=== PATIENT | male | born 1975 | race Caucasian/White ===

== ENCOUNTER 2016-10-30 20:32 | Inpatient (IN) | payer MEDICAID ==
[~2016-10-30] VITALS: Ht 175.3 cm; Wt 87.2 kg
[~2016-10-30 20:32] MED LIST: CHLO.12%30 SSP; CLIN150 PO; IBUP800T23 PO; LISI-363 PO; LORTA5 PO; METH10TA PO; NAPR500 PO; TAB-TAB PO
[2016-10-30 20:35] VITALS: BP 119/78; PULSE 76; RESP 16; TEMP 97.4; O2SAT 95
[2016-10-30] MEDS ORDERED: NALOXONE HCL 2 MG/2 ML VIAL ONE (23:34)
[2016-10-30] MEDS ORDERED: SODIUM CHLOR 0.9% 1000 ML INJ 1,000 ML IV ONE (23:45)
[2016-10-30] MEDS ORDERED: NALOXONE HCL 2 MG/2 ML VIAL IV PUSH ONE (23:45)
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
[2016-10-31] VITALS (14 sets, daily range): BP systolic 102–141; BP diastolic 61–90; PULSE 55–91; RESP 10–24; TEMP 97.4–98.3; O2SAT 91–99
[2016-10-31 00:09] LABS: AUTOMATED NEUTROPHIL # 4.9 TH/MM3 (1.8-7.7); BASOPHIL % 0.3 % (0.0-2.0); EOSINOPHIL # 0.1 TH/MM3 (0-0.4); EOSINOPHIL % 1.8 % (0.0-4.0); HEMATOCRIT 38.2 % (39.0-51.0); LYMPH % 17.3 % (9.0-44.0); LYMPHOCYTE # 1.2 TH/MM3 (1.0-4.8); MEAN CELL VOLUME 85.3 FL (80.0-100.0); MEAN CORPUSCULAR HEMOGLOBIN 29.6 PG (27.0-34.0); MEAN CORPUSCULAR HGB CONC 34.7 % (32.0-36.0); MONO % 10.4 % (0.0-8.0); NEUT % 70.2 % (16.0-70.0); PLATELET COUNT 210 TH/MM3 (150-450); RED BLOOD COUNT 4.48 MIL/MM3 (4.50-5.90); RED CELL DISTRIBUTION WIDTH 13.5 % (11.6-17.2); WHITE BLOOD COUNT 6.9 TH/MM3 (4.0-11.0)
[2016-10-31 00:20] LABS: HEMO FLAGS DIFF FINAL
[2016-10-31 00:29] LABS: ACETAMINOPHEN LESS THAN 2.0 MCG/ML (10.0-30.0); ALT (GPT) 29 U/L (12-78); ANION GAP 8 MEQ/L (5-15); AST (GOT) 29 U/L (15-37); BICARBONATE 29.2 MEQ/L (21.0-32.0); BLOOD UREA NITROGEN 25 MG/DL (7-18); CHLORIDE 109 MEQ/L (98-107); GLOMERULAR FILTRATION RATE 84 ML/MIN (>89); POTASSIUM 3.5 MEQ/L (3.5-5.1); SODIUM (NA) 146 MEQ/L (136-145)
[2016-10-31] MEDS ORDERED: NALOXONE INJ 4 MG in DEXTROSE 5% IN WATER INJ 246 ML IV SCH ×2 (00:30)
[2016-10-31 00:37] LABS: BLOOD GAS BASE EXCESS 1.4 mmol/L (-2-2); BLOOD GAS HCO3 25 mmol/L (22-26); BLOOD GAS METHEMOGLOBIN 1.5 % (0-2); BLOOD GAS O2 HGB SATURATION 94 % (90-100); BLOOD GAS OXYGEN CONTENT 17.3 Vol % (12.0-20.0); BLOOD GAS PCO2 34 mmHg (38-42); BLOOD GAS PO2 81 mmHG (61-120); BLOOD GAS TOTAL HGB 13.1 G/DL (12.0-16.0); CRITICAL VALUE NO; DRAW SITE RT FEMORAL; LITER FLOW 4 L/M; NUMBER OF ARTERIAL PUNCTURES 1; OXYGEN DEVICE NASAL CANNULA; STAT YES; TEMP CORR TO 98.6
[2016-10-31 00:39] LABS: AMPHETAMINE, URINE POS (NEG); BARBITURATES, URINE NEG (NEG); COCAINE, URINE POS (NEG)
[2016-10-31 00:39] LABS: ALKALINE PHOSPHATASE 80 U/L (45-117); CREATINE KINASE 827 U/L (39-308); TOTAL BILIRUBIN ADULT 0.7 MG/DL (0.2-1.0)
[2016-10-31 00:51] LABS: CKMB 5.2 NG/ML (0.5-3.6)
--- NOTE | 2016-10-31 01:40 | RADRPT ---
EXAM DATE/TIME: 10/31/2016 01:05 [facility] COMPARISON: CHEST SINGLE AP, September 03, 2013, 19:45. INDICATIONS : Short of breath. MEDICAL HISTORY : None. SURGICAL HISTORY : None. ENCOUNTER: Initial ACUITY: 1 day PAIN SCORE: Non-responsive. LOCATION: Bilateral chest FINDINGS: A single view of the chest demonstrates the lungs to be symmetrically aerated without evidence of mas s, infiltrate or effusion. The cardiomediastinal contours are unremarkable. Osseous structures are intact. CONCLUSION: No acute disease. No significant change has occurred. Karthik Menjivar MD on October 31, 2016 at 1:34 Board Certified Radiologist. This report was verified electronically.
[2016-10-31] MEDS ORDERED: ACETAMINOPHEN 325 MG TAB PO PRN (02:30)
[2016-10-31] MEDS ORDERED: RESP: ALBUTEROL 2.5 MG/IPRATROPIUM 0.5 MG NEB (PRN) INH (02:30)
[2016-10-31] MEDS ORDERED: CHLORHEXIDINE GLUCONATE 2 % 1 PACK (2 CLOTHS) TOP PRN (02:30)
[2016-10-31] MEDS ORDERED: METOCLOPRAMIDE HCL 10 MG/2 ML VIAL IV PRN (02:30)
[2016-10-31] MEDS ORDERED: ONDANSETRON HCL 4 MG/2 ML VIAL IV PRN (02:30)
[2016-10-31] MEDS ORDERED: SODIUM CHLORIDE 0.9% FLUSH 5 ML FLUSH IV FLUSH PRN (02:30)
[2016-10-31] MEDS ORDERED: LORazepam 2 MG/ML VIAL IV PRN (02:30)
[2016-10-31] MEDS ORDERED: MISCELLANEOUS NURSING INFORMATION XX SCH (02:30)
[2016-10-31] MEDS ORDERED: ZOLPIDEM TARTRATE 5 MG TAB PO PRN (02:30)
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
[2016-10-31] MEDS ORDERED: IBUPROFEN 800 MG TAB PO PRN (02:45)
[2016-10-31] MEDS ORDERED: hydrALAZINE HCL 20 MG/ML VIAL IV PUSH PRN (02:45)
[2016-10-31] MEDS: SODIUM CHLOR 0.9% 1000 ML INJ 1,000 ML IV SCH ×4 (03:13→16:56)
[2016-10-31] MEDS: CHLORHEXIDINE GLUCONATE 2 % 1 PACK (2 CLOTHS) TOP SCH (05:09)
[2016-10-31 05:41] LABS: CKMB 5.4 NG/ML (0.5-3.6)
[2016-10-31] MEDS: SODIUM CHLORIDE 0.9% FLUSH 5 ML FLUSH IV FLUSH SCH ×2 (07:39→21:00)
[2016-10-31] MEDS: LISINOPRIL 20 MG TAB PO SCH (09:00)
[2016-10-31] MEDS ORDERED: FAMOTIDINE 20 MG/2 ML VIAL IV PUSH SCH (09:00)
[2016-10-31] MEDS: ENOXAPARIN SODIUM 40 MG/0.4 ML SYRINGE SQ SCH (09:00)
[2016-10-31] MEDS: MULTIVITAMIN TAB PO SCH (09:00)
[2016-10-31 22:32] LABS: CKMB 2.8 NG/ML (0.5-3.6)
[2016-11-01] VITALS: BP 118/70; PULSE 74; RESP 18; TEMP 97; O2SAT 95
[2016-11-01] MEDS: SODIUM CHLOR 0.9% 1000 ML INJ 1,000 ML IV SCH ×3 (00:46→10:54)
[2016-11-01] MEDS: CHLORHEXIDINE GLUCONATE 2 % 1 PACK (2 CLOTHS) TOP SCH (00:46)
[2016-11-01 06:35] LABS: AUTOMATED NEUTROPHIL # 3.6 TH/MM3 (1.8-7.7); BASOPHIL % 0.3 % (0.0-2.0); EOSINOPHIL # 0.1 TH/MM3 (0-0.4); EOSINOPHIL % 2.4 % (0.0-4.0); HEMATOCRIT 31.4 % (39.0-51.0); HEMO FLAGS DIFF FINAL; LYMPH % 18.5 % (9.0-44.0); LYMPHOCYTE # 0.9 TH/MM3 (1.0-4.8); MEAN CORPUSCULAR HEMOGLOBIN 30.1 PG (27.0-34.0); MONO % 9.3 % (0.0-8.0); NEUT % 69.5 % (16.0-70.0); PLATELET COUNT 147 TH/MM3 (150-450); RED BLOOD COUNT 3.65 MIL/MM3 (4.50-5.90); RED CELL DISTRIBUTION WIDTH 13.4 % (11.6-17.2); WHITE BLOOD COUNT 5.1 TH/MM3 (4.0-11.0)
[2016-11-01 07:04] LABS: ALKALINE PHOSPHATASE 69 U/L (45-117); ALT (GPT) 50 U/L (12-78); ANION GAP 5 MEQ/L (5-15); AST (GOT) 41 U/L (15-37); BICARBONATE 30.5 MEQ/L (21.0-32.0); BLOOD UREA NITROGEN 15 MG/DL (7-18); CHLORIDE 109 MEQ/L (98-107); GLOMERULAR FILTRATION RATE 106 ML/MIN (>89); MAGNESIUM 1.9 MG/DL (1.5-2.5); POTASSIUM 3.9 MEQ/L (3.5-5.1); SODIUM (NA) 144 MEQ/L (136-145); TOTAL BILIRUBIN ADULT 0.3 MG/DL (0.2-1.0)
[2016-11-01 08:00] VITALS: BP 117/76; PULSE 65; RESP 17; TEMP 96.4; O2SAT 95
[2016-11-01] MEDS: ENOXAPARIN SODIUM 40 MG/0.4 ML SYRINGE SQ SCH (08:27)
[2016-11-01] MEDS: SODIUM CHLORIDE 0.9% FLUSH 5 ML FLUSH IV FLUSH SCH (08:27)
[2016-11-01] MEDS: LISINOPRIL 20 MG TAB PO SCH (08:27)
[2016-11-01] MEDS: MULTIVITAMIN TAB PO SCH (08:27)
[2016-11-01 12:00] VITALS: BP 127/84; PULSE 62; RESP 18; TEMP 97.5; O2SAT 97
[2016-11-01 12:49] VITALS: O2SAT 96
--- NOTE | 2016-11-01 13:24 | HHI.PR ---
Subjective Remarks The patient wanted to go home. He said he overdosed on Dilaudid and is not sure why. He said he won't do it again. He said he also smoked marijuana. He denies using other drugs. He said he felt well ambulating. He has been tolerating a diet. He said he is drinking plenty of fluids. Discussed with nursing. Objective Vitals Vital Signs Date Time Temp Pulse Resp B/P Pulse Ox O2 Delivery O2 Flow Rate FiO2 11/01/16 12:49 96 11/01/16 12:00 97.5 62 18 127/84 97 11/01/16 09:27 17 11/01/16 08:24 Room Air 11/01/16 08:00 96.4 65 17 117/76 95 11/01/16 00:45 Room Air 11/01/16 00:00 97.0 74 18 118/70 95 10/31/16 22:00 64 10/31/16 21:00 98 Room Air 10/31/16 20:50 98 21 10/31/16 20:00 97.4 55 10 106/65 98 10/31/16 20:00 55 10/31/16 20:00 97.4 62 20 110/62 97 10/31/16 19:00 99 Nasal Cannula 2.00 10/31/16 16:00 58 10/31/16 16:00 98.3 58 12 108/66 98 I/O 10/31/16 10/31/16 10/31/16 11/01/16 11/01/16 11/01/16 07:00 15:00 23:00 07:00 15:00 23:00 Intake Total 507 ml 2680 ml 2388 ml 1169 ml Output Total 0 ml 300 ml 900 ml 600 ml Balance 507 ml 2380 ml 1488 ml 569 ml Intake Oral 1200 ml 360 ml 220 ml IV Total 507 ml 1480 ml 2028 ml 949 ml Output Urine Total 0 ml 300 ml 900 ml 600 ml # Bowel Movements 0 0 Result Diagram: 11/01/16 0514 11/01/16 0514 Imaging Last Impressions Chest X-Ray 10/30/16 0000 Signed Impressions: Service Date/Time: Monday, October 31, 2016 01:05 - CONCLUSION: No acute disease. No significant change has occurred. Karthik Menjivar MD Objective Remarks GENERAL: Well-nourished, well-developed patient in NAD. SKIN: Warm and dry. HEAD: Normocephalic. EYES: No scleral icterus. No injection or drainage. NECK: Supple, trachea midline. No JVD or lymphadenopathy. CARDIOVASCULAR: Regular rate and rhythm without murmurs, gallops, or rubs. RESPIRATORY: Breath sounds equal bilaterally. No accessory muscle use. GASTROINTESTINAL: Abdomen soft, nondistended. MUSCULOSKELETAL: No cyanosis, or edema. BACK: Nontender without obvious deformity. No CVA tenderness. EXTREMITIES: No edema. NEURO: No gross deficits. Medications and IVs Current Medications Medications (Trade) Dose Ordered Sig/Pat Route Start Time Stop Time Status Last Admin (NS 1000 ml Inj) 1,000 ml @ 185 mls/hr Q5H25M IV 10/31/16 02:24 11/01/16 05:55 (NS Flush) 2 ml UNSCH PRN IV FLUSH 10/31/16 02:30 (NS Flush) 2 ml BID IV FLUSH 10/31/16 09:00 10/31/16 21:00 (Tylenol) 650 mg Q6H PRN PO 10/31/16 02:30 11/01/16 08:27 (Ativan Inj) 2 mg Q4H PRN IV 10/31/16 02:30 (Zofran Inj) 4 mg Q6H PRN IV 10/31/16 02:30 (Lovenox Inj) 40 mg Q24H SQ 10/31/16 09:00 11/01/16 08:27 (Chlorhexidine 2% Cloth) 3 pack Taper DAILY@04 TOP 10/31/16 04:00 10/27/17 03:59 10/31/16 05:09 (Chlorhexidine 2% Cloth) 3 pack UNSCH PRN TOP 10/31/16 02:30 (Apresoline Inj) 20 mg Q4H PRN IV PUSH 10/31/16 02:45 (Motrin) 800 mg TID PRN PO 10/31/16 02:45 (Prinivil) 20 mg DAILY PO 10/31/16 09:00 11/01/16 08:27 (Theragran) 1 tab DAILY PO 10/31/16 09:00 11/01/16 08:27 A/P Assessment and Plan Methadone overdose The pt says he is on 10 mg of methadone three times a day. He says he is not sure why he overdosed but he said he will not do it again. He currently feels at his baseline. - Neuro checks. - Narcan when necessary. - IV fluid hydration. - cessation instruction. - outpt follow-up. Rhabdomyolysis Secondary to overdose. CK level has been improving with IV hydration. - Encourage by mouth intake of fluids. HTN Well controlled at this time. - continue Lisinopril. DVT GI prophylaxis - Lovenox and Pepcid Discharge Planning Discharge home. Ren Christopher DO Nov 01, 2016 13:24
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
== END 2016-11-01 14:21 | disposition home or self-care (01) | DRG 918 ==
LOC: NEPC 20:32 → NEDA 10-31 02:19 → N03B 10-31 04:03 → N07A 10-31 23:21
PROVIDERS: ADMIT Hospitalist; ATTEND Hospitalist
DX: T40.3X1A Poisoning by methadone, accidental (unintentional), initial encounter (principal); M62.82 Rhabdomyolysis; E87.1 Hypo-osmolality and hyponatremia; I10 Essential (primary) hypertension; G89.29 Other chronic pain; K21.9 Gastro-esophageal reflux disease without esophagitis; F40.240 Claustrophobia; F12.90 Cannabis use, unspecified, uncomplicated; Z72.0 Tobacco use; Z78.1 Physical restraint status; Z79.891 Long term (current) use of opiate analgesic; Y92.9 Unspecified place or not applicable
CPT/HCPCS: 36600; 71010; 80053; 80307; 80320; 80329; 82140; 82550; 82552; 82805; 83735; 84100; 84443; 85025; 87641; 96361; 96365; 96376; G0480; J1650; J2310; J7030; J7060; P9612

== ENCOUNTER 2017-03-18 21:28 | Emergency (ER) | payer MEDICAID ==
[~2017-03-18] VITALS: Ht 172.7 cm; Wt 89.8 kg
[2017-03-18 21:32] VITALS: BP 182/103; PULSE 69; RESP 18; TEMP 99.1; O2SAT 98
== END 2017-03-18 23:27 | disposition left against medical advice (07) ==
LOC: NED 21:28
DX: T14.8 Other injury of unspecified body region (principal); W54.0XXA Bitten by dog, initial encounter; Z53.21 Procedure and treatment not carried out due to patient leaving prior to being seen by health care provider
CPT/HCPCS: 99281

== ENCOUNTER 2017-09-11 13:20 | Emergency (ER) | payer MEDICAID ==
[~2017-09-11] VITALS: Ht 172.7 cm; Wt 77.3 kg
[2017-09-11 13:21] VITALS: BP 156/101; PULSE 95; RESP 20; TEMP 99.3; O2SAT 98
[2017-09-11] MEDS ORDERED: ACETAMINOPHEN/HYDROcodone 325 MG/5 MG TAB PO ONE (15:45)
[2017-09-11] MEDS ORDERED: LIDOCAINE HCL 1% 50 ML VIAL INFIL ONE (15:45)
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
[2017-09-11] MEDS ORDERED: IBUPROFEN 800 MG TAB PO ONE (16:00)
[2017-09-11] MEDS ORDERED: LIDOCAINE HCL 1% 20 ML VIAL INFIL ONE (16:45)
[2017-09-11] MEDS ORDERED: CEPH-460 PO (17:04)
[2017-09-11] MEDS ORDERED: BACT800T5 PO (17:04)
[2017-09-11] MEDS ORDERED: IBUP1TAB7 PO (17:04)
== END 2017-09-11 17:21 | disposition home or self-care (01) ==
LOC: NEPK 13:20
DX: L02.413 Cutaneous abscess of right upper limb (principal); K21.9 Gastro-esophageal reflux disease without esophagitis; I10 Essential (primary) hypertension; Z72.0 Tobacco use; F12.90 Cannabis use, unspecified, uncomplicated
CPT/HCPCS: 10060; 10061; 87070; 87205

== ENCOUNTER 2017-09-13 08:44 | Emergency (ER) | payer MEDICAID ==
[~2017-09-13] VITALS: Ht 172.7 cm; Wt 78.0 kg
[~2017-09-13 08:44] MED LIST changes: +BACT800T5 PO; +CEPH-460 PO; -CHLO.12%30 SSP; -CLIN150 PO; +IBUP1TAB7 PO; -IBUP800T23 PO; -LISI-363 PO; -LORTA5 PO; -METH10TA PO; -NAPR500 PO; -TAB-TAB PO
[2017-09-13 08:45] VITALS: BP 116/76; PULSE 69; RESP 12; TEMP 98.6; O2SAT 98
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
== END 2017-09-13 11:27 | disposition home or self-care (01) ==
LOC: NEPD 08:44
DX: L02.413 Cutaneous abscess of right upper limb (principal); Z48.817 Encounter for surgical aftercare following surgery on the skin and subcutaneous tissue; Z72.0 Tobacco use
CPT/HCPCS: 99281

== ENCOUNTER 2017-12-02 10:29 | Emergency (ER) | payer MEDICAID ==
[~2017-12-02] VITALS: Ht 172.7 cm; Wt 85.0 kg
[2017-12-02 10:40] VITALS: BP 169/92; PULSE 69; RESP 20; TEMP 98.7; O2SAT 100
[2017-12-02 10:57] VITALS: BP 182/100; PULSE 70; RESP 18; TEMP 98.4; O2SAT 99
[2017-12-02] MEDS ORDERED: LISI-519 PO (10:59)
[2017-12-02] MEDS ORDERED: LIDOCAINE HCL 1% 50 ML VIAL INFIL ONE (11:00)
[2017-12-02] MEDS ORDERED: oxyCODONE/ACETAMINOPHEN 5 MG/325 MG TAB PO ONE (11:00)
[2017-12-02] MEDS ORDERED: DOXY100C PO (11:41)
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
== END 2017-12-02 11:52 | disposition home or self-care (01) ==
LOC: NEPD 10:29
DX: L02.91 Cutaneous abscess, unspecified (principal); L03.113 Cellulitis of right upper limb; F12.90 Cannabis use, unspecified, uncomplicated; Z72.0 Tobacco use
CPT/HCPCS: 10060; 87070; 87205

== ENCOUNTER 2017-12-04 20:52 | Emergency (ER) | payer MEDICAID ==
[~2017-12-04] VITALS: Ht 172.7 cm; Wt 81.5 kg
[~2017-12-04 20:52] MED LIST changes: -BACT800T5 PO; -CEPH-460 PO; +DOXY100C PO; -IBUP1TAB7 PO; +LISI-519 PO
[2017-12-04 22:29] VITALS: BP 119/69; PULSE 95; RESP 17; TEMP 97.7; O2SAT 100
== END 2017-12-04 23:08 | disposition left against medical advice (07) ==
LOC: NED 20:52
DX: Z03.89 Encounter for observation for other suspected diseases and conditions ruled out (principal)
CPT/HCPCS: 99281

== ENCOUNTER 2017-12-15 14:15 | Emergency (ER) | payer MEDICAID ==
[~2017-12-15] VITALS: Ht 172.7 cm; Wt 82.0 kg
[2017-12-15 14:28] VITALS: BP 138/87; PULSE 90; RESP 19; TEMP 98.8; O2SAT 100
[2017-12-15] MEDS ORDERED: LIDOCAINE 1%/EPINEPHrine 1:100,000 SOLN 20 ML VIAL INFIL ONE (16:30)
[2017-12-15] MEDS ORDERED: SODIUM CHLORIDE 0.9% FLUSH 10 ML FLUSH IVF PRN (16:30)
[2017-12-15] MEDS ORDERED: oxyCODONE/ACETAMINOPHEN 7.5 MG/325 MG TAB PO ONE (16:30)
[2017-12-15] MEDS ORDERED: LIDOCAINE 1%/EPINEPHrine 1:100,000 SOLN 30 ML VIAL ONE (16:38)
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
[2017-12-15] MEDS ORDERED: CLINDAMYCIN 900 MG/NS PREMIX 50 ML IV ONE (16:45)
[2017-12-15 17:11] LABS: AUTOMATED NEUTROPHIL # 9.5 TH/MM3 (1.8-7.7); BASOPHIL # 0.1 TH/MM3 (0-0.2); BASOPHIL % 0.5 % (0.0-2.0); EOSINOPHIL # 0.1 TH/MM3 (0-0.4); EOSINOPHIL % 0.7 % (0.0-4.0); HEMATOCRIT 42.2 % (39.0-51.0); HEMOGLOBIN 14.5 GM/DL (13.0-17.0); LYMPH % 11.5 % (9.0-44.0); LYMPHOCYTE # 1.4 TH/MM3 (1.0-4.8); MEAN CELL VOLUME 85.9 FL (80.0-100.0); MEAN CORPUSCULAR HEMOGLOBIN 29.5 PG (27.0-34.0); MEAN CORPUSCULAR HGB CONC 34.4 % (32.0-36.0); MEAN PLATELET VOLUME 7.7 FL (7.0-11.0); MONOCYTE # 0.8 TH/MM3 (0-0.9); NEUT % 80.3 % (16.0-70.0); PLATELET COUNT 325 TH/MM3 (150-450); RED BLOOD COUNT 4.91 MIL/MM3 (4.50-5.90); RED CELL DISTRIBUTION WIDTH 13.6 % (11.6-17.2); WHITE BLOOD COUNT 11.8 TH/MM3 (4.0-11.0)
[2017-12-15 17:35] LABS: ALBUMIN 3.8 GM/DL (3.4-5.0); ALT (GPT) 27 U/L (12-78); AST (GOT) 10 U/L (15-37); BICARBONATE 27.9 MEQ/L (21.0-32.0); BLOOD UREA NITROGEN 9 MG/DL (7-18); CALCIUM 9.5 MG/DL (8.5-10.1); CHLORIDE 108 MEQ/L (98-107); CREATININE 0.84 MG/DL (0.60-1.30); GLOMERULAR FILTRATION RATE 99 ML/MIN (>89); GLUCOSE,RANDOM 91 MG/DL (74-106); SODIUM (NA) 141 MEQ/L (136-145)
[2017-12-15 17:37] LABS: ALKALINE PHOSPHATASE 90 U/L (45-117); TOTAL BILIRUBIN ADULT 0.4 MG/DL (0.2-1.0); TOTAL PROTEIN 7.8 GM/DL (6.4-8.2)
[2017-12-15] MEDS ORDERED: TYLETAB34 PO (18:13)
[2017-12-15] MEDS ORDERED: CLIN150C14 PO (18:13)
== END 2017-12-15 19:41 | disposition home or self-care (01) ==
LOC: NEPC 14:15
DX: L02.413 Cutaneous abscess of right upper limb (principal); L03.113 Cellulitis of right upper limb; F14.10 Cocaine abuse, uncomplicated; M19.90 Unspecified osteoarthritis, unspecified site; K21.9 Gastro-esophageal reflux disease without esophagitis; I10 Essential (primary) hypertension; Z72.0 Tobacco use; Z79.899 Other long term (current) drug therapy
CPT/HCPCS: 10061; 80053; 80307; 85025; 87070; 87205; 96365

== ENCOUNTER 2017-12-17 08:17 | Emergency (ER) | payer MEDICAID ==
[~2017-12-17] VITALS: Ht 172.7 cm; Wt 85.0 kg
[~2017-12-17 08:17] MED LIST changes: +CLIN150C14 PO; +TYLETAB34 PO
[2017-12-17 08:20] VITALS: BP 146/89; PULSE 68; RESP 16; TEMP 97.8; O2SAT 99
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
[2017-12-17] MEDS ORDERED: IBUP1TAB7 PO (09:00)
[2017-12-17] MEDS ORDERED: PERC5TAB12 PO (09:00)
[2017-12-17] MEDS ORDERED: oxyCODONE/ACETAMINOPHEN 5 MG/325 MG TAB PO ONE (09:00)
== END 2017-12-18 09:30 | disposition home or self-care (01) ==
LOC: NEPD 08:17
DX: L02.91 Cutaneous abscess, unspecified (principal); Z48.01 Encounter for change or removal of surgical wound dressing
CPT/HCPCS: 99281